=== PATIENT | male | born 1975 | race Caucasian/White ===

== ENCOUNTER 2018-07-10 05:52 | Emergency (ER) | payer SELFPAY ==
[2018-07-10] MEDS ORDERED: ASPIRIN 81 MG CHEWABLE CTB PO STA (06:10)
[2018-07-10] MEDS ORDERED: SODIUM CHLORIDE 0.9% FLUSH 10 ML SOL IV PRN (06:10)
[2018-07-10] MEDS ORDERED: NITROGLYCERIN 0.4 MG TAB SL PRN (06:10)
[2018-07-10] MEDS ORDERED: ASPIRIN 81 MG CHEWABLE CTB ONE (06:12)
[2018-07-10 06:20] VITALS: TEMP 97.2
[2018-07-10] MEDS ORDERED: LORAZEPAM 2 MG/ML SOL IV ONE (06:39)
[2018-07-10] MEDS ORDERED: LORAZEPAM 2 MG/ML SOL ONE (06:43)
[2018-07-10 06:51] LABS: BASOPHILS % (AUTO) 1 % (0-3); EOSINOPHILS % (AUTO) 5 % (0-9); HEMATOCRIT 36 % (39-53); HEMOGLOBIN 11.7 gm/dl (13.5-17.7); LYMPHOCYTES % (AUTO) 27.1 % (10-50); MEAN CORPUSCULAR HEMOGLOBIN 29.5 pg (27.0-32.0); MEAN CORPUSCULAR HGB CONC 32.8 gm/dl (32.0-36.0); MEAN CORPUSCULAR VOLUME 90 fL (80-100); MONOCYTES % (AUTO) 6.5 % (0-12); NEUTROPHILS % (AUTO) 60.8 % (37-80)
[2018-07-10 07:03] LABS: INR 0.91 (0.86-1.12)
[2018-07-10 07:09] LABS: CALCIUM 8.8 mg/dl (8.5-10.1); CARBON DIOXIDE 22.8 mEq/L (21-32); CREATININE 2.41 mg/dl (0.80-1.30); POTASSIUM 4.2 mMol/L (3.5-5.1); TROP I 0.033 ng/ml (0.000-0.056)
[2018-07-10 07:18] VITALS: RESP 12
[2018-07-10 07:27] VITALS: BP 143/81; PULSE 60; O2SAT 97
== END 2018-07-10 09:17 | disposition home or self-care (01) | DRG 204 ==
LOC: ED 05:52
DX: R06.02 Shortness of breath (principal); R07.9 Chest pain, unspecified; N18.9 Chronic kidney disease, unspecified; E11.9 Type 2 diabetes mellitus without complications
CPT/HCPCS: 36415; 71045; 80048; 82550; 83880; 84484; 85025; 85610; 85730; 93005; 96374; 99284; 99285; J2060